=== PATIENT | female | born 1995 ===

== ENCOUNTER → 2018-07-06 | Outpatient (CLI) | payer OTHER ==
[2018-07-06 19:12] LABS: Anion Gap 5 mmol/L (6-16); Blood Urea Nitrogen 15 mg/dL (8-24); Bun/Creatinine Ratio 24.2 (12.0-20.0); CO2, Blood 26 mmol/L (21-32); Calcium, Blood 8.8 mg/dL (8.5-10.1); Chloride, Blood 107 mmol/L (98-108); Creatinine, Blood 0.62 mg/dL (0.40-1.00); Glomerular Filtration Rate >60 (60-); Glucose, Blood 96 mg/dL (70-99); Potassium, Blood 4.5 mmol/L (3.5-5.5); Sodium, Blood 138 mmol/L (136-145)
== END ==
LOC: LAB 18:26 → LAB SHORT 18:26
DX: D35.2 Benign neoplasm of pituitary gland (principal)
CPT/HCPCS: 80048

== ENCOUNTER 2024-03-19 20:49 | Emergency (ER) | payer OTHER ==
[~2024-03-19] VITALS: Ht 170.2 cm; Wt 99.8 kg
[2024-03-19] MEDS ORDERED: Ibuprofen 600 MG Tab PO ONE (21:10)
[2024-03-19] MEDS ORDERED: Methocarbamol 500 MG Tab PO ONE (21:10)
[2024-03-19 21:55] VITALS: BP 98/61
== END 2024-03-19 21:55 | disposition home or self-care (01) ==
LOC: ER 20:49
DX: R07.89 Other chest pain (principal); W18.39XA Other fall on same level, initial encounter
CPT/HCPCS: 71101; 99284-25; A9270

== ENCOUNTER → 2024-04-06 | Outpatient (CLI) | payer OTHER ==
[2024-04-06 18:50] LABS: BASOPHILS ABSOLUTE AUTO 0.06 K/mm3 (0.00-0.23); BASOPHILS PERCENT AUTO 1 % (0-2); EOSINOPHILS ABSOLUTE AUTO 0.56 K/mm3 (0.00-0.68); EOSINOPHILS PERCENT AUTO 8 % (0-6); Hematocrit 43.6 % (33.0-51.0); Hemoglobin 14.5 g/dL (11.5-16.0); IMMATURE GRAN ABSOLUTE AUTO 0.01 K/mm3 (0.00-0.10); IMMATURE GRAN PERCENT AUTO 0 % (0-1); LYMPHOCYTES ABSOLUTE AUTO 2.04 K/mm3 (0.84-5.20); LYMPHOCYTES PERCENT AUTO 28 % (21-46); MONOCYTES PERCENT AUTO 8 % (4-13); Mean Corpuscular HGB 31.3 pg (26.0-34.0); Mean Corpuscular HGB Conc 33.3 g/dL (31.5-36.5); Mean Corpuscular Volume 94 fL (80-100); Mean Platelet Volume 10.3 fL (9.1-12.4); NEUTROPHILS ABSOLUTE AUTO 3.97 K/mm3 (1.96-9.15); NEUTROPHILS PERCENT AUTO 55 % (41-73); Platelet Count 315 K/mm3 (150-400); RDW Coefficient Variation 12.7 % (11.7-14.2); RDW Standard Deviation 43.5 fL (35.1-46.3); Red Blood Cell Count 4.64 M/mm3 (3.80-5.20); White Blood Cell Count 7.24 K/mm3 (4.00-11.30)
[2024-04-06 20:01] LABS: Alanine Aminotransfer (ALT/SGP 48 U/L (12-78); Albumin, Blood 4.6 g/dL (3.4-5.0); Albumin/Globulin Ratio 1.2 (0.8-1.8); Alk Phos 101 U/L (50-136); Anion Gap 12 mmol/L (3-11); Aspartate Aminotrans (AST/SGOT 30 U/L (12-37); Bilirubin, Total 0.5 mg/dL (0.1-1.0); Blood Urea Nitrogen 7 mg/dL (8-24); Bun/Creatinine Ratio 7.7 (12.0-20.0); CHOL/HDL RATIO 4.5; CO2, Blood 29 mmol/L (21-32); Calcium, Blood 9.4 mg/dL (8.5-10.1); Chloride, Blood 100 mmol/L (98-108); Cholesterol 252 mg/dL (50-200); Creatinine, Blood 0.91 mg/dL (0.40-1.00); Globulin, Blood 3.8 g/dL (2.2-4.0); Glomerular Filtration Rate 87 (60-); Glucose, Blood 78 mg/dL (70-99); HDL Cholesterol 56 mg/dL (>39); LDL/HDL RATIO 2.5; Low Density Lipoprotein Chol 138 mg/dL (0-110); Potassium, Blood 3.7 mmol/L (3.5-5.5); Sodium, Blood 137 mmol/L (136-145); Total Protein, Blood 8.4 g/dL (6.4-8.2); Triglycerides 291 mg/dL (30-140); Very Low Density Lipoprot Chol 58 mg/dL (6-28)
== END | disposition home or self-care (01) ==
LOC: LAB SHORT 17:50 → LAB 17:50
PROVIDERS: Family Medicine
DX: Z51.81 Encounter for therapeutic drug level monitoring (principal); Z79.899 Other long term (current) drug therapy
CPT/HCPCS: 80053; 80061; 85025